=== PATIENT | female | born 1960 | race Caucasian/White ===

== ENCOUNTER → 2018-06-05 11:25 | Outpatient (CLI) | payer BC, SELFPAY ==
[2018-06-05 15:59] LABS: Absolute Lymphocyte Count 1.61 X10^3/ul (0.83-4.51); Absolute Neutrophil Count 3.5 X10^3/uL (2.0-7.7); Basophil# 0.03 X10^3/uL; Basophil% 0.5 % (0-1); Eosinophil# 0.14 X10^3/uL; Eosinophils% 2.3 % (0-5); Hematocrit 36.3 % (37-47); Hemoglobin 11.4 g/dl (12.0-15.0); Lymphocyte # 1.61 X10^3/ul (4.0); Lymphocyte % 26.9 % (19-41); Mean Corp Hgb Conc 31.4 g/gl (32-36); Mean Corpuscular Hgb 26.9 pg (27.0-32.0); Mean Corpuscular Volume 85.6 fL (81-99); Mean Platelet Vol. 10.6 fl (6.2-12.0); Monocyte# 0.69 X10^3/uL; Monocyte% 11.5 % (0-10); Neutrophil # 3.52 X10^3/uL (2.7-7.7); Neutrophil % 58.8 % (47-70); Platelet Count 328 K/mm3 (150-450); RBC Distribution Width CV 14.4 % (11.6-14.6); Red Blood Count 4.24 M/mm3 (4.2-5.4)
[2018-06-05 16:02] LABS: POSITIVE COUNT NO; POSITIVE DIFFERENTIAL NO; POSITIVE MORPHOLOGY NO
[2018-06-05 16:19] LABS: Vitamin B12 700 pg/mL (211-911); Vitamin D,25 Hydroxy 19.9 ng/mL (29.95-100.01)
[2018-06-05 16:55] LABS: AST(SGOT) 20 U/L (15-37); Alanine Aminotransfer ALT/SGPT 25 U/L (13-56); Albumin, Serum 3.8 g/dL (3.2-5.0); Alkaline Phosphatase 74 U/L (45-117); Anion Gap 8 (5-15); BUN 10 mg/dL (7-18); BUN/Creat Ratio 12.8 RATIO (10-20); Calcium,Total 8.8 mg/dL (8.5-10.1); Chloride 108 mmol/L (98-107); Creatinine, Serum 0.78 mg/dL (0.55-1.02); EST Glomerular Filtration Rate 80 mL/min (>60); Est Glom Filt Rate - Afr Amer 97 mL/min (>60); Ferritin 6 ng/mL (8-252); Globulin 3.7 g/dL (2.2-4.2); Glucose 82 mg/dL (74-106); Potassium 4.1 mmol/L (3.5-5.1); Protein, Total 7.5 g/dL (6.4-8.2); Sodium Level 144 mmol/L (136-145); Thyroid Stim Hormone (TSH) 1.34 uIU/mL (0.358-3.74)
[2018-06-08 16:09] LABS: Endomysial Antibody IgA Negative (Negative)
[2018-06-09 15:25] LABS: Deamidated Gliadin IgA 41 units (0-19); Deamidated Gliadin IgG 6 units (0-19); Immunoglobulin A 149 mg/dL (87-352); t-Transglutaminase IgA <2 U/mL (0-3)
== END ==
PROVIDERS: Family Provider Family Medicine; PCP Family Medicine; Visit Provider Family Medicine
DX: R63.5 Abnormal weight gain (principal); M17.11 Unilateral primary osteoarthritis, right knee; R53.83 Other fatigue; Z86.2 Personal history of diseases of the blood and blood-forming organs and certain disorders involving the immune mechanism; Z83.79 Family history of other diseases of the digestive system
CPT/HCPCS: 36415; 80053; 82306; 82607; 82728; 82746; 82784; 83516; 84443; 85025; 86255

== ENCOUNTER → 2018-09-10 15:48 | Outpatient (CLI) | payer BC, SELFPAY ==
[2018-09-10 17:27] LABS: Absolute Lymphocyte Count 2.21 X10^3/ul (0.83-4.51); Basophil# 0.03 X10^3/uL; Basophil% 0.4 % (0-1); Eosinophil# 0.13 X10^3/uL; Eosinophils% 1.6 % (0-5); Hematocrit 44.6 % (37-47); Hemoglobin 14.6 g/dl (12.0-15.0); Lymphocyte # 2.21 X10^3/ul (4.0); Lymphocyte % 27.9 % (19-41); Mean Corp Hgb Conc 32.7 g/gl (32-36); Mean Corpuscular Hgb 29.5 pg (27.0-32.0); Mean Corpuscular Volume 90.1 fL (81-99); Mean Platelet Vol. 10.1 fl (6.2-12.0); Monocyte# 0.57 X10^3/uL; Monocyte% 7.2 % (0-10); Neutrophil # 4.96 X10^3/uL (2.7-7.7); Neutrophil % 62.8 % (47-70); Platelet Count 287 K/mm3 (150-450); RBC Distribution Width CV 14.8 % (11.6-14.6); RBC Distribution Width SD 48.3 fl (35.1-43.9); Red Blood Count 4.95 M/mm3 (4.2-5.4); White Blood Count 7.9 K/mm3 (4.4-11.0)
[2018-09-10 17:28] LABS: POSITIVE COUNT NO; POSITIVE DIFFERENTIAL NO; POSITIVE MORPHOLOGY NO
[2018-09-10 17:43] LABS: Vitamin D,25 Hydroxy 31.3 ng/mL (29.95-100.01)
[2018-09-10 17:49] LABS: Ferritin 92 ng/mL (8-252)
== END ==
PROVIDERS: Family Provider Family Medicine; PCP Family Medicine; Visit Provider Family Medicine
DX: K90.0 Celiac disease (principal); E61.1 Iron deficiency; E55.9 Vitamin D deficiency, unspecified
CPT/HCPCS: 36415; 82306; 82728; 85025

== ENCOUNTER → 2019-03-18 | Outpatient (CLI) | payer BC, SELFPAY ==
[2019-03-18 10:24] LABS: ALB/GLOB Ratio 1.1 RATIO (0.9-2.4); AST(SGOT) 19 U/L (15-37); Alanine Aminotransfer ALT/SGPT 24 U/L (13-56); Albumin, Serum 3.9 g/dL (3.2-5.0); Alkaline Phosphatase 85 U/L (45-117); Anion Gap 4 (5-15); BUN 7 mg/dL (7-18); BUN/Creat Ratio 9.4 RATIO (10-20); Calcium,Total 8.9 mg/dL (8.5-10.1); Chloride 108 mmol/L (98-107); Creatinine, Serum 0.74 mg/dL (0.55-1.02); EST Glomerular Filtration Rate 85 mL/min (>60); Est Glom Filt Rate - Afr Amer 103 mL/min (>60); Ferritin 27 ng/mL (8-252); Globulin 3.5 g/dL (2.2-4.2); Glucose 88 mg/dL (74-106); Potassium 4.1 mmol/L (3.5-5.1); Protein, Total 7.4 g/dL (6.4-8.2); Sodium Level 141 mmol/L (136-145)
[2019-03-18 10:46] LABS: Vitamin D,25 Hydroxy 24.5 ng/mL (29.95-100.01)
== END | disposition home or self-care (01) ==
PROVIDERS: Family Provider Family Medicine; PCP Family Medicine; Referring Provider Family Medicine; Visit Provider Family Medicine
DX: E55.9 Vitamin D deficiency, unspecified (principal); M13.0 Polyarthritis, unspecified; K90.0 Celiac disease
CPT/HCPCS: 36415; 80053; 82306; 82728; 83735

== ENCOUNTER → 2019-09-17 | Outpatient (CLI) | payer BC, SELFPAY ==
[2019-09-17 10:08] LABS: Absolute Lymphocyte Count 1.31 X10^3/uL (0.83-4.51); Absolute Neutrophil Count 4.1 X10^3/uL (2.0-7.7); Basophil# 0.03 X10^3/uL; Basophil% 0.5 % (0-1); Eosinophil# 0.07 X10^3/uL; Eosinophils% 1.1 % (0-5); Hematocrit 41.2 % (37-47); Lymphocyte # 1.31 X10^3/ul (4.0); Lymphocyte % 21.1 % (19-41); Mean Corp Hgb Conc 31.6 g/dL (32-36); Mean Corpuscular Hgb 28.3 pg (27.0-32.0); Mean Corpuscular Volume 89.8 fL (81-99); Mean Platelet Vol. 9.9 fl (6.2-12.0); Monocyte# 0.72 X10^3/uL; Monocyte% 11.6 % (0-10); NRBC Flagged by Analyzer 0 % (0-5); Neutrophil # 4.07 X10^3/uL (2.7-7.7); Neutrophil % 65.5 % (47-70); Platelet Count 302 K/mm3 (150-450); RBC Distribution Width CV 12.8 % (11.6-14.6); RBC Distribution Width SD 41.8 fl (35.1-43.9); RET-HE 33.1 pg (30-35); Red Blood Count 4.59 M/mm3 (4.2-5.4); Reticulocyte Count 1.01 % (0.5-1.5); White Blood Count 6.2 K/mm3 (4.4-11.0)
[2019-09-17 10:33] LABS: Vitamin B12 808 pg/mL (211-911)
[2019-09-17 10:50] LABS: AST(SGOT) 16 U/L (15-37); Alanine Aminotransfer ALT/SGPT 20 U/L (13-56); Albumin, Serum 3.9 g/dL (3.2-5.0); Alkaline Phosphatase 73 U/L (45-117); Anion Gap 6 (5-15); BUN 9 mg/dL (7-18); BUN/Creat Ratio 10.9 RATIO (10-20); Calcium,Total 9.1 mg/dL (8.5-10.1); Chloride 107 mmol/L (98-107); Creatinine, Serum 0.83 mg/dL (0.55-1.02); EST Glomerular Filtration Rate 75 mL/min (>60); Est Glom Filt Rate - Afr Amer 91 mL/min (>60); Ferritin 8 ng/mL (8-252); Globulin 3.8 g/dL (2.2-4.2); Glucose 88 mg/dL (74-106); Potassium 4.2 mmol/L (3.5-5.1); Protein, Total 7.7 g/dL (6.4-8.2); Sodium Level 140 mmol/L (136-145); Thyroid Stim Hormone (TSH) 1.23 uIU/mL (0.358-3.74)
== END | disposition home or self-care (01) ==
LOC: MFPLAB 09:11
PROVIDERS: Family Provider Family Medicine; PCP Family Medicine; Referring Provider Family Medicine; Visit Provider Family Medicine
DX: K90.0 Celiac disease (principal); E61.1 Iron deficiency
CPT/HCPCS: 36415; 80053; 82607; 82728; 84443; 85025; 85045

== ENCOUNTER 2021-12-11 09:34 | Outpatient (CLI) | payer BC, SELFPAY ==
[2021-12-11 12:12] LABS: Absolute Lymphocyte Count 1.28 X10^3/uL (0.83-4.51); Absolute Neutrophil Count 4.2 X10^3/uL (2.0-7.7); Basophil# 0.04 X10^3/uL; Basophil% 0.6 % (0-1); Eosinophil# 0.09 X10^3/uL; Eosinophils% 1.4 % (0-5); Hematocrit 40.9 % (37-47); Hemoglobin 13.5 g/dL (12.0-15.0); Lymphocyte # 1.28 X10^3/ul (0.83-4.51); Lymphocyte % 19.9 % (19-41); Mean Corpuscular Hgb 30.8 pg (27.0-32.0); Mean Corpuscular Volume 93.2 fL (81-99); Mean Platelet Vol. 10.1 fl (6.2-12.0); Monocyte# 0.81 X10^3/uL; Monocyte% 12.6 % (0-10); NRBC Flagged by Analyzer 0 % (0-5); Neutrophil % 65.2 % (47-70); Platelet Count 348 K/mm3 (150-450); RBC Distribution Width CV 12.5 % (11.6-14.6); RBC Distribution Width SD 43.4 fl (35.1-43.9); Red Blood Count 4.39 M/mm3 (4.2-5.4); White Blood Count 6.4 K/mm3 (4.4-11.0)
[2021-12-11 12:43] LABS: Vitamin B12 737 pg/mL (211-911)
[2021-12-11 13:35] LABS: ALB/GLOB Ratio 0.9 RATIO (0.9-2.4); AST(SGOT) 17 U/L (15-37); Alanine Aminotransfer ALT/SGPT 21 U/L (13-56); Albumin, Serum 3.7 g/dL (3.2-5.0); Alkaline Phosphatase 76 U/L (45-117); Anion Gap 7 (5-15); BUN 6 mg/dL (7-18); BUN/Creat Ratio 8.3 RATIO (10-20); Chloride 106 mmol/L (98-107); Creatinine, Serum 0.73 mg/dL (0.55-1.02); EST Glomerular Filtration Rate 87 mL/min (>60); Est Glom Filt Rate - Afr Amer 105 mL/min (>60); Ferritin 28 ng/mL (8-252); Globulin 4.1 g/dL (2.2-4.2); Glucose 82 mg/dL (74-106); Iron 58 ug/dL (50-170); Iron Binding Capacity,Total 320 ug/dL (250-450); Potassium 4.2 mmol/L (3.5-5.1); Protein, Total 7.8 g/dL (6.4-8.2); Sodium Level 140 mmol/L (136-145); Thyroid Stim Hormone (TSH) 1.38 uIU/mL (0.358-3.74)
== END 2021-12-11 23:59 | disposition home or self-care (01) ==
LOC: MFPLAB 09:37
PROVIDERS: PCP Family Medicine; Referring Provider Family Medicine; Visit Provider Family Medicine
DX: K90.0 Celiac disease (principal); E61.1 Iron deficiency
CPT/HCPCS: 36415; 80053; 82607; 82728; 83540; 83550; 84443; 85025

== ENCOUNTER 2022-01-08 08:56 | Outpatient (CLI) | payer BC, SELFPAY ==
--- NOTE | 2022-01-08 08:59 | BI_ITS ---
MAMMOGRAPHY - BILATERAL SCREENING REASON FOR EXAM: Female, 61 years old. Routine annual screening examination. PERTINENT HISTORY: Non-contributory. TECHNIQUE: Digital bilateral breast tevin (3D mammographic acquisition) in the CC and MLO projections. 2-D mediolateral oblique (MLO) and craniocaudad (CC) views of both breasts were obtained. CAD: Full Field Digital Mammography with Computer Added Detection was performed. COMPARISON: No comparison mammograms available at this time. If any prior films become available, an addendum to this report can be generated. FINDINGS: Breast Composition: The breasts are heterogeneously dense, which may obscure small masses. There are no dominant masses or suspicious calcifications. No other significant abnormalities are identified. BI/SCRN MAMM (CAD)W/TEVIN BILAT IMPRESSION: Negative screening mammogram. Yearly followup mammogram recommended. (A) ASSESSMENT CATEGORY: BIRADS Category 1: Negative. A letter regarding these results will be sent to the patient by the facility within 30 days. Approximately 10% of breast cancers are not detected by mammography. A normal mammogram should not delay biopsy of a clinically suspicious abnormality. [id number] Electronically Signed: Ian Lang MD at 9:44 EST ,
== END 2022-01-08 23:59 | disposition home or self-care (01) ==
LOC: OPBI 08:57
PROVIDERS: PCP Family Medicine; Visit Provider Family Medicine
DX: Z12.31 Encounter for screening mammogram for malignant neoplasm of breast (principal)
CPT/HCPCS: 77063; 77067

== ENCOUNTER → 2022-04-11 | Outpatient (CLI) | payer BC, SELFPAY ==
[2022-04-11 10:34] LABS: Lyme Ab Screen Interpretation REF LAB
[2022-04-11 12:32] LABS: Absolute Lymphocyte Count 1.22 X10^3/uL (0.83-4.51); Absolute Neutrophil Count 5.8 X10^3/uL (2.0-7.7); Basophil# 0.04 X10^3/uL; Basophil% 0.5 % (0-1); Eosinophil# 0.09 X10^3/uL; Eosinophils% 1.1 % (0-5); Hematocrit 43.9 % (37-47); Hemoglobin 14.2 g/dL (12.0-15.0); Lymphocyte # 1.22 X10^3/ul (0.83-4.51); Lymphocyte % 15.3 % (19-41); Mean Corp Hgb Conc 32.3 g/dL (32-36); Mean Corpuscular Hgb 30.7 pg (27.0-32.0); Mean Platelet Vol. 10.3 fl (6.2-12.0); Monocyte# 0.77 X10^3/uL; Monocyte% 9.7 % (0-10); NRBC Flagged by Analyzer 0 % (0-5); Neutrophil # 5.83 X10^3/uL (2.7-7.7); Neutrophil % 73.1 % (47-70); Platelet Count 329 K/mm3 (150-450); RBC Distribution Width CV 12.8 % (11.6-14.6); RBC Distribution Width SD 44.2 fl (35.1-43.9); Red Blood Count 4.62 M/mm3 (4.2-5.4)
[2022-04-11 12:45] LABS: Microalbumin,Random Urine 5.1 mg/L (NO RANGE EST.)
[2022-04-11 13:02] LABS: AST(SGOT) 15 U/L (15-37); Alanine Aminotransfer ALT/SGPT 22 U/L (13-56); Albumin, Serum 3.8 g/dL (3.2-5.0); Alkaline Phosphatase 74 U/L (45-117); Anion Gap 5 (5-15); BUN 9 mg/dL (7-18); BUN/Creat Ratio 12.8 RATIO (10-20); Calcium,Total 9.3 mg/dL (8.5-10.1); Chloride 106 mmol/L (98-107); EST Glomerular Filtration Rate 90 mL/min (>60); Est Glom Filt Rate - Afr Amer 109 mL/min (>60); Globulin 3.8 g/dL (2.2-4.2); Glucose 97 mg/dL (74-106); Protein, Total 7.6 g/dL (6.4-8.2); Sodium Level 138 mmol/L (136-145); Thyroid Stim Hormone (TSH) 1.62 uIU/mL (0.358-3.74)
[2022-04-15 20:10] LABS: Lyme Scn Total Ab w/Rflx Negative (Negative)
== END | disposition home or self-care (01) ==
LOC: MFPLAB 10:28
PROVIDERS: PCP Family Medicine; Referring Provider Family Medicine; Visit Provider Family Medicine
DX: I10 Essential (primary) hypertension (principal); R42 Dizziness and giddiness; R53.81 Other malaise
CPT/HCPCS: 36415; 80053; 82043; 82570; 84443; 85025; 86618

== ENCOUNTER → 2022-05-20 | Outpatient (CLI) | payer BC, SELFPAY ==
[2022-05-20 15:55] LABS: Ferritin 38 ng/mL (8-252)
[2022-05-20 22:50] LABS: Vitamin D,25 Hydroxy 35.2 ng/mL
[2022-05-23 15:41] LABS: Zinc, Plasma or Serum 63 ug/dL (44-115)
== END | disposition home or self-care (01) ==
LOC: MFPLAB 11:27
PROVIDERS: PCP Family Medicine; Visit Provider Family Medicine
DX: R53.83 Other fatigue (principal); E55.9 Vitamin D deficiency, unspecified; E61.1 Iron deficiency; Z79.899 Other long term (current) drug therapy
CPT/HCPCS: 36415; 82306; 82728; 84630

== ENCOUNTER → 2022-10-23 | Outpatient (CLI) | payer BC, SELFPAY ==
[2022-10-23 10:10] LABS: Absolute Lymphocyte Count 1.48 X10^3/uL (0.83-4.51); Absolute Neutrophil Count 5.1 X10^3/uL (2.0-7.7); Basophil# 0.02 X10^3/uL; Basophil% 0.3 % (0-1); Eosinophil# 0.08 X10^3/uL; Eosinophils% 1.1 % (0-5); Hematocrit 46.7 % (37-47); Hemoglobin 15.6 g/dL (12.0-15.0); Lymphocyte # 1.48 X10^3/ul (0.83-4.51); Lymphocyte % 19.7 % (19-41); Mean Corp Hgb Conc 33.4 g/dL (32-36); Mean Corpuscular Hgb 31.4 pg (27.0-32.0); Mean Platelet Vol. 10.2 fl (6.2-12.0); Monocyte% 10.7 % (0-10); NRBC Flagged by Analyzer 0 % (0-5); Neutrophil # 5.11 X10^3/uL (2.7-7.7); Neutrophil % 68.1 % (47-70); Platelet Count 312 K/mm3 (150-450); RBC Distribution Width CV 12.2 % (11.6-14.6); RBC Distribution Width SD 42.3 fl (35.1-43.9); Red Blood Count 4.97 M/mm3 (4.2-5.4); White Blood Count 7.5 K/mm3 (4.4-11.0)
[2022-10-23 10:57] LABS: ALB/GLOB Ratio 0.9 RATIO (0.9-2.4); AST(SGOT) 17 U/L (15-37); Alanine Aminotransfer ALT/SGPT 22 U/L (13-56); Albumin, Serum 3.6 g/dL (3.2-5.0); Alkaline Phosphatase 81 U/L (45-117); Anion Gap 4 (5-15); BUN 8 mg/dL (7-18); BUN/Creat Ratio 11.9 RATIO (10-20); Calcium,Total 9.1 mg/dL (8.5-10.1); Chloride 104 mmol/L (98-107); Cholesterol 211 mg/dL (200); Creatinine, Serum 0.68 mg/dL (0.55-1.02); EST Glomerular Filtration Rate 94 mL/min (>60); Est Glom Filt Rate - Afr Amer 114 mL/min (>60); Globulin 3.8 g/dL (2.2-4.2); Glucose 79 mg/dL (74-106); High Density Lipoprotein 72 mg/dL; Potassium 4.2 mmol/L (3.5-5.1); Protein, Total 7.4 g/dL (6.4-8.2); Sodium Level 139 mmol/L (136-145); Thyroid Stim Hormone (TSH) 1.67 uIU/mL (0.358-3.74); Triglycerides 76 mg/dL; Very Low Density Lipoprotein 15 mg/dL (5-40)
== END | disposition home or self-care (01) ==
LOC: MFPLAB 08:15
PROVIDERS: PCP Family Medicine; Referring Provider Family Medicine; Visit Provider Family Medicine
DX: Z00.00 Encounter for general adult medical examination without abnormal findings (principal)
CPT/HCPCS: 36415; 80053; 80061; 84443; 85025

== ENCOUNTER → 2022-10-30 | Outpatient (CLI) | payer BC, SELFPAY ==
[2022-10-30 10:50] LABS: Microalbumin,Random Urine < 5.0 mg/L (NO RANGE EST.)
== END | disposition home or self-care (01) ==
LOC: LABSPEC 09:16
PROVIDERS: PCP Family Medicine; Referring Provider Family Medicine; Visit Provider Family Medicine
DX: Z00.00 Encounter for general adult medical examination without abnormal findings (principal)
CPT/HCPCS: 82043; 82570

== ENCOUNTER 2023-03-20 07:50 | Day surgery (SDC) | payer BC, SELFPAY ==
[2023-03-20] VITALS (7 sets, daily range): BP systolic 81–135; BP diastolic 40–85; PULSE 62–80; RESP 16; TEMP 36.7–36.8; O2SAT 98–100; BMI 26.2
[2023-03-20] MEDS: Lactated Ringers 1,000 ML 15 ML IV (08:23)
--- NOTE | 2023-03-20 08:58 | PCM.HP.STD ---
[facility] - General General Date of Admission: 03/20/23 Date of Service: 03/20/23 Chief Complaint: Screening colonoscopy [facility] Narrative EFRA FLETCHER, is a 62 F who presents today for screening colonoscopy. She has not had a colonoscopy in the past. She denies any abdominal pain. She denies any nausea, vomiting or diarrhea. She did [place] any chest pain or shortness of breath. She does have a history of iron deficiency anemia and is on iron. She also carries a past medical history of mild hypertension which is controlled. [facility] Medical History (Updated 03/18/23 @ 12:10 by Michelle Redman) Celiac disease History of stress test HTN (hypertension) Iron deficiency anemia Low iron Non-smoker Vitamin D deficiency Wears glasses Home Medications cholecalciferol (vitamin D3) 25 mcg (1,000 unit) capsule 75 mcg PO DAILY 01/07/23 [History Last Taken Unknown] ferrous sulfate 325 mg (65 mg iron) tablet (Feosol) 325 mg PO DAILY 01/07/23 [History Last Taken Unknown] flaxseed oil 1,000 mg capsule 1,000 mg PO DAILY 01/07/23 [History Last Taken Unknown] multivitamin 1 tab PO DAILY 01/07/23 [History Last Taken Unknown] ramipril 5 mg capsule 5 mg PO DAILY 01/07/23 [History Last Taken Unknown] Allergy/AdvReac Type Severity Reaction Status Date / Time No Known Allergies Allergy Verified 03/20/23 08:16 Surgical History (Updated 03/18/23 @ 12:10 by Michelle Redman) History of tubal ligation History of wisdom tooth extraction Social History (Updated 01/07/23 @ 14:06 by Dorota Yeung) Smoking Status: Never smoker ROS Review of Systems ROS Unobtainable: other Constitutional Constitutional: Denies fatigue, fever(s), poor appetite, weight gain or weight loss ENT HEENT: Denies mouth lesions Cardiovascular Cardiovascular: Denies abdominal bloating, abdominal edema or abdominal pain Respiratory/Chest Respiratory/Chest: Denies change in mental status, change in phlegm color, chest congestion or chest tightness Gastrointestinal Gastrointestinal: Denies belching, bloating, change in bowel habits, change in stool character, chewing difficulty, coffee ground emesis, constipation, cramping, diarrhea, dyspepsia, dysphagia, early satiety, excessive flatus, fecal incontinence, heartburn, hematemesis, hematochezia, hemorrhoids, loose stools, melena, nausea, odynophagia, rectal bleeding, tenesmus, vomiting or weight changes Genitourinary Genitourinary: Denies abdominal discomfort, burning urination or itching Musculoskeletal Musculoskeletal: Reports as per HPI; Denies muscle weakness or myalgias Integumentary Integumentary: Denies jaundice Neurologic Neurologic: Denies lack of coordination or weakness Psychiatric Psychiatric: Denies confusion, depression, memory loss, mood swings, paranoia or suicidal ideation Endocrine Endocrinology: Denies systems reviewed and no addt'l complaints, except as documented Hematologic/Lymphatic Hematologic/Lymphatic: Denies anemia, easy bleeding, easy bruising or lymphadenopathy Allergic/Immunologic Allergic/Immunologic: Denies systems reviewed and no addt'l complaints, except as documented Vital Signs Vital Signs Vital Signs: 03/20/23 08:17 03/20/23 08:17 Temperature 98.3 F Temperature Source Temporal Pulse Rate 80 Respiratory Rate 16 Respiratory Pattern Normal Blood Pressure 135/85 H Blood Pressure Mean 101 Blood Pressure Source Monitor Blood Pressure Position Semi-Fowlers Blood Pressure Location Left Arm Pulse Ox 100 Oxygen Delivery Method Room Air Weight Weight: 138 lb 14.259 oz Body Mass Index (BMI) 26.2 Assessment & Plan Assessment/Plan (1) Encounter for screening for malignant neoplasm of colon: PLAN: She was explained alternatives, risk, benefits including outstanding bleeding, infection, sepsis, perforation, need for emergent and . She will have an ASA of 1.
--- NOTE | 2023-03-20 09:24 | OP.COLON_ITS ---
Patient Name: Jaz Lao Procedure Date: 03/20/2023 9:01 AM Date of : 1960 Age: 62 Procedure: Colonoscopy Indications: Screening for colorectal malignant neoplasm Providers: Jasbir Otero DO Referring MD: Paolo Aquino Medicines: Monitored Anesthesia Care Patient Profile: This is a 62 year old female. Refer to note in patient chart for documentation of history and physical. Last Colonoscopy: none. The patient's first colonoscopy is today. Complications: No immediate complications. Procedure: Pre-Anesthesia Assessment: - Prior to the procedure, a History and Physical was performed, and patient medications and allergies were reviewed. The risks and benefits of the procedure and the sedation options and risks were discussed with the patient. All questions were answered and informed consent was obtained. Patient identification and proposed procedure were verified by the physician in the pre-procedure area. Mental Status Examination: alert and oriented. Airway Examination: normal oropharyngeal airway and neck mobility. Respiratory Examination: clear to auscultation. CV Examination: normal. Prophylactic Antibiotics: The patient does not require prophylactic antibiotics. Prior Anticoagulants: The patient has taken no previous anticoagulant or antiplatelet agents. ASA Grade Assessment: II - A patient with mild systemic disease. After reviewing the risks and benefits, the patient was deemed in satisfactory condition to undergo the procedure. The anesthesia plan was to use monitored anesthesia care (MAC). Immediately prior to administration of medications, the patient was re-assessed for adequacy to receive sedatives. The heart rate, respiratory rate, oxygen saturations, blood pressure, adequacy of pulmonary ventilation, and response to care were monitored throughout the procedure. The physical status of the patient was re-assessed after the procedure. After I obtained informed consent, the scope was passed under direct vision. Throughout the procedure, the patient's blood pressure, pulse, and oxygen saturations were monitored continuously. The Colonoscope was introduced through the anus and advanced to the cecum, identified by appendiceal orifice and ileocecal valve. The colonoscopy was performed without difficulty. The patient tolerated the procedure well. The quality of the bowel preparation was adequate. Scope In: 9:08:59 AM Scope Withdrawal Time 0 hours 4 minutes 29 seconds Scope Out: 9:17:44 AM Total Procedure Duration Time 0 hours 8 minutes 45 seconds Findings: The perianal and digital rectal examinations were normal. A few small and large-mouthed diverticula were found in the recto-sigmoid colon and sigmoid colon. Impression: - Severe diverticulosis in the recto-sigmoid colon and in the sigmoid colon. - No specimens collected. Recommendation: - Discharge patient to home. - Resume previous diet. - Continue present medications. - Await pathology results. - Repeat colonoscopy to review the polypectomy site. Procedure Code(s): --- Professional --- G0121, Colorectal cancer screening; colonoscopy on individual not meeting criteria for high risk CPT copyright 2017 [employer]. All rights reserved. The codes documented in this report are preliminary and upon garage door hanger review may be revised to meet current compliance requirements. Jasbir Otero DO 03/20/2023 9:24:14 AM This report has been signed electronically. Number of Addenda: 0 Note Initiated On: 03/20/2023 9:01 AM
--- NOTE | 2023-03-20 09:25 | OP.CCLET_ITS ---
03/20/2023 Paolo Aquino [address] [place] [address] Re : Colonoscopy procedure for Jaz Lao Dear Dr. Aquino This procedure was performed on March. My impressions and recommendations are as follows: Impressions : - Severe diverticulosis in the recto-sigmoid colon and in the sigmoid colon. - No specimens collected. Recommendations : - Discharge patient to home. - Resume previous diet. - Continue present medications. - Await pathology results. - Repeat colonoscopy to review the polypectomy site. My findings are described in the full procedure note, which is enclosed. If I can be of further assistance, please feel free to contact me at . Sincerely, Jasbir Otero, 03/20/2023 9:24:14 AM This report has been signed electronically.
== END 2023-03-20 10:10 | disposition home or self-care (01) ==
LOC: EN 07:56 → AC 08:00
PROVIDERS: PCP Family Medicine; Referring Provider Family Medicine; Visit Provider Internal Medicine Gastroenterology
PROC: 0DJD8ZZ Inspection of Lower Intestinal Tract, Via Natural or Artificial Opening Endoscopic (ICD-10-PCS; CPT 45378; principal; 2023-03-20 08:55)
DX: Z12.11 Encounter for screening for malignant neoplasm of colon (principal); K57.30 Diverticulosis of large intestine without perforation or abscess without bleeding; I10 Essential (primary) hypertension; D50.9 Iron deficiency anemia, unspecified; Z79.899 Other long term (current) drug therapy
CPT/HCPCS: 45378; J7120; J2405

== ENCOUNTER → 2023-04-14 | Outpatient (CLI) | payer BC, SELFPAY ==
[2023-04-14 13:27] LABS: Anion Gap 5 (5-15); BUN 7 mg/dL (7-18); BUN/Creat Ratio 9.9 RATIO (10-20); Calcium,Total 9.5 mg/dL (8.5-10.1); Chloride 107 mmol/L (98-107); Creatinine, Serum 0.71 mg/dL (0.55-1.02); EST Glomerular Filtration Rate 89 mL/min (>60); Est Glom Filt Rate - Afr Amer 107 mL/min (>60); Glucose 94 mg/dL (74-106); Potassium 4.1 mmol/L (3.5-5.1); Sodium Level 139 mmol/L (136-145)
== END | disposition home or self-care (01) ==
LOC: MFPLAB 09:58
PROVIDERS: PCP Family Medicine; Visit Provider Family Medicine
DX: I10 Essential (primary) hypertension (principal)
CPT/HCPCS: 36415; 80048

== ENCOUNTER → 2023-04-18 | Outpatient (CLI) | payer BC, SELFPAY ==
--- NOTE | 2023-04-18 08:21 | BI_ITS ---
MAMMOGRAPHY - BILATERAL SCREENING REASON FOR EXAM: Female, 62 years old. Routine annual screening examination. PERTINENT HISTORY: Non-contributory. TECHNIQUE: Digital bilateral breast tevin (3D mammographic acquisition) in the CC and MLO projections. 2-D mediolateral oblique (MLO) and craniocaudad (CC) views of both breasts were obtained. CAD: Full Field Digital Mammography with Computer Added Detection was performed. COMPARISON: Comparison is made with prior study dated January 08, 2022. FINDINGS: Breast Composition: The breasts are heterogeneously dense, which may obscure small masses. There are no dominant masses or suspicious calcifications. Stable small benign-appearing lateral axillary lymph nodes. No other significant abnormalities are identified. There has been no significant change since the prior study. BI/SCRN MAMM (CAD)W/TEVIN BILAT IMPRESSION: Stable bilateral screening mammogram. Yearly follow-up mammogram recommended. (A) ASSESSMENT CATEGORY: BIRADS Category 2: Benign. A letter regarding these results will be sent to the patient by the facility within 30 days. Approximately 10% of breast cancers are not detected by mammography. A normal mammogram should not delay biopsy of a clinically suspicious abnormality. [id number] Electronically Signed: Ian Lang MD at 9:52 EDT ,
== END | disposition home or self-care (01) ==
LOC: OPBI 08:21
PROVIDERS: PCP Family Medicine; Referring Provider Family Medicine; Visit Provider Family Medicine
DX: Z12.31 Encounter for screening mammogram for malignant neoplasm of breast (principal)
CPT/HCPCS: 77063; 77067

== ENCOUNTER → 2023-10-20 | Outpatient (CLI) | payer BC, SELFPAY ==
[2023-10-20 12:17] LABS: Hematocrit 45.2 % (37-47); Hemoglobin 14.7 g/dL (12.0-15.0)
[2023-10-20 13:08] LABS: Anion Gap 5 (5-15); BUN 8 mg/dL (7-18); BUN/Creat Ratio 11.4 RATIO (10-20); Calcium,Total 9.1 mg/dL (8.5-10.1); Chloride 107 mmol/L (98-107); EST Glomerular Filtration Rate 90 mL/min (>60); Est Glom Filt Rate - Afr Amer 108 mL/min (>60); Ferritin 37 ng/mL (8-252); Glucose 98 mg/dL (74-106); Sodium Level 140 mmol/L (136-145)
[2023-10-20 13:22] LABS: Microalbumin,Random Urine < 5.0 mg/L (NO RANGE EST.)
== END | disposition home or self-care (01) ==
LOC: MFPLAB 10:07
PROVIDERS: PCP Family Medicine; Visit Provider Family Medicine
DX: I10 Essential (primary) hypertension (principal); E61.1 Iron deficiency
CPT/HCPCS: 36415; 80048; 82043; 82570; 82728; 85014; 85018

== ENCOUNTER → 2024-04-20 | Outpatient (CLI) | payer BC, SELFPAY ==
[2024-04-20 10:04] LABS: Absolute Lymphocyte Count 1.01 X10^3/uL (0.83-4.51); Absolute Neutrophil Count 3.7 X10^3/uL (2.0-7.7); Basophil# 0.04 X10^3/uL; Basophil% 0.7 % (0-1); Eosinophil# 0.07 X10^3/uL; Eosinophils% 1.3 % (0-5); Hematocrit 42.5 % (37-47); Hemoglobin 14.1 g/dL (12.0-15.0); Lymphocyte # 1.01 X10^3/ul (0.83-4.51); Lymphocyte % 18.2 % (19-41); Mean Corp Hgb Conc 33.2 g/dL (32-36); Mean Corpuscular Hgb 30.9 pg (27.0-32.0); Mean Corpuscular Volume 93.2 fL (81-99); Mean Platelet Vol. 9.8 fl (6.2-12.0); Monocyte# 0.69 X10^3/uL; Monocyte% 12.4 % (0-10); NRBC Flagged by Analyzer 0 % (0-5); Neutrophil # 3.74 X10^3/uL (2.7-7.7); Neutrophil % 67.2 % (47-70); Platelet Count 273 K/mm3 (150-450); RBC Distribution Width CV 12.2 % (11.6-14.6); RBC Distribution Width SD 41.9 fl (35.1-43.9); Red Blood Count 4.56 M/mm3 (4.2-5.4); White Blood Count 5.6 K/mm3 (4.4-11.0)
[2024-04-20 10:39] LABS: ALB/GLOB Ratio 0.9 RATIO (0.9-2.4); AST(SGOT) 15 U/L (15-37); Alanine Aminotransfer ALT/SGPT 22 U/L (13-56); Albumin, Serum 3.6 g/dL (3.2-5.0); Alkaline Phosphatase 61 U/L (45-117); Anion Gap 5 (5-15); BUN 10 mg/dL (7-18); BUN/Creat Ratio 13.6 RATIO (10-20); Calcium,Total 9.5 mg/dL (8.5-10.1); Chloride 106 mmol/L (98-107); Creatinine, Serum 0.73 mg/dL (0.55-1.02); EST Glomerular Filtration Rate 85 mL/min (>60); Est Glom Filt Rate - Afr Amer 103 mL/min (>60); Glucose 104 mg/dL (74-106); Potassium 4.1 mmol/L (3.5-5.1); Protein, Total 7.6 g/dL (6.4-8.2); Sodium Level 139 mmol/L (136-145)
[2024-04-20 11:21] LABS: Microalbumin,Random Urine < 5.0 mg/L (NO RANGE EST.)
== END | disposition home or self-care (01) ==
LOC: MFPLAB 08:37
PROVIDERS: PCP Family Medicine; Visit Provider Family Medicine
DX: M24.9 Joint derangement, unspecified (principal); I10 Essential (primary) hypertension
CPT/HCPCS: 36415; 80053; 82043; 82570; 85025

== ENCOUNTER → 2024-04-23 | Outpatient (CLI) | payer BC, SELFPAY ==
--- NOTE | 2024-04-23 07:12 | BI_ITS ---
MAMMOGRAPHY - BILATERAL SCREENING REASON FOR EXAM: Female, 63 years old. Routine annual screening examination. PERTINENT HISTORY: Non-contributory. TECHNIQUE: Digital bilateral breast tevin (3D mammographic acquisition) in the CC and MLO projections. 2-D mediolateral oblique (MLO) and craniocaudad (CC) views of both breasts were obtained. CAD: Full Field Digital Mammography with Computer Added Detection was performed. COMPARISON: Comparison is made with prior study dated April 18, 2023 and January 08, 2022. FINDINGS: Breast Composition: The breasts are heterogeneously dense, which may obscure small masses. There are no dominant masses or suspicious calcifications. Stable small benign-appearing bilateral axillary lymph nodes. No other significant abnormalities are identified. There has been no significant change since the prior study. BI/SCRN MAMM (CAD)W/TEVIN BILAT IMPRESSION: Stable bilateral screening mammogram. Yearly follow-up mammogram recommended. (A) ASSESSMENT CATEGORY: BIRADS Category 2: Benign. A letter regarding these results will be sent to the patient by the facility within 30 days. Approximately 10% of breast cancers are not detected by mammography. A normal mammogram should not delay biopsy of a clinically suspicious abnormality. [id number] Electronically Signed: Ian Lang MD at 8:32 EDT ,
== END | disposition home or self-care (01) ==
LOC: OPBI 07:08
PROVIDERS: PCP Family Medicine; Referring Provider Family Medicine; Visit Provider Family Medicine
DX: Z12.31 Encounter for screening mammogram for malignant neoplasm of breast (principal)
CPT/HCPCS: 77063; 77067

== ENCOUNTER → 2024-10-25 | Outpatient (CLI) | payer BC, SELFPAY ==
[2024-10-25 10:14] LABS: Absolute Lymphocyte Count 1.27 X10^3/uL (0.83-4.51); Basophil# 0.03 X10^3/uL; Basophil% 0.5 % (0-1); Eosinophil# 0.11 X10^3/uL; Eosinophils% 1.8 % (0-5); Lymphocyte # 1.27 X10^3/ul (0.83-4.51); Lymphocyte % 20.4 % (19-41); Mean Corp Hgb Conc 32.6 g/dL (32-36); Mean Corpuscular Hgb 30.2 pg (27.0-32.0); Mean Corpuscular Volume 92.7 fL (81-99); Mean Platelet Vol. 10.5 fl (6.2-12.0); Monocyte# 0.82 X10^3/uL; Monocyte% 13.1 % (0-10); NRBC Flagged by Analyzer 0 % (0-5); Neutrophil # 3.99 X10^3/uL (2.7-7.7); Neutrophil % 63.9 % (47-70); Platelet Count 232 K/mm3 (150-450); RBC Distribution Width CV 12.2 % (11.6-14.6); Red Blood Count 4.96 M/mm3 (4.2-5.4); White Blood Count 6.2 K/mm3 (4.4-11.0)
[2024-10-25 10:34] LABS: Vitamin D,25 Hydroxy 40.1 ng/mL
[2024-10-25 10:41] LABS: ALB/GLOB Ratio 0.9 RATIO (0.9-2.4); AST(SGOT) 18 U/L (15-37); Alanine Aminotransfer ALT/SGPT 21 U/L (13-56); Albumin, Serum 3.6 g/dL (3.2-5.0); Alkaline Phosphatase 70 U/L (45-117); Anion Gap 3 (5-15); BUN 8 mg/dL (7-18); BUN/Creat Ratio 11.3 RATIO (10-20); Chloride 106 mmol/L (98-107); Creatinine, Serum 0.71 mg/dL (0.55-1.02); EST Glomerular Filtration Rate 88 mL/min (>60); Est Glom Filt Rate - Afr Amer 107 mL/min (>60); Ferritin 54 ng/mL (8-252); Glucose 85 mg/dL (74-106); Potassium 3.8 mmol/L (3.5-5.1); Protein, Total 7.6 g/dL (6.4-8.2); Sodium Level 139 mmol/L (136-145)
[2024-10-25 10:52] LABS: Microalbumin,Random Urine 7.4 mg/L (NO RANGE EST.); Microalbumin:Creatinine Ratio 8.1 mg/g CRE (<30 mg/g CRE)
== END | disposition home or self-care (01) ==
PROVIDERS: PCP Family Medicine; Referring Provider Family Medicine; Visit Provider Family Medicine
DX: M13.0 Polyarthritis, unspecified (principal); E55.9 Vitamin D deficiency, unspecified; I10 Essential (primary) hypertension; K90.0 Celiac disease
CPT/HCPCS: 36415; 80053; 82043; 82306; 82570; 82728; 84443; 85025

== ENCOUNTER → 2025-10-20 | Outpatient (CLI) | payer MEDICARE, OTHER, SELFPAY ==
--- OUTSIDE RECORDS SUMMARY | 2025-10-20 07:45 | XMS RPT_ITS | CCD ---
Author Organization [facility] Care Team Providers Care Talent Specialist Name Role Phone Dr. Paolo Aquino Primary Care Provider Dorota Yeung Attending Provider Unavailable Dr. Paolo Aquino Referring Provider [phone] Friend, Dr. Martell Attending Provider [phone] Friend, Dr. Martell Other Provider [phone] Paolo Aquino Referring Unavailable Paolo Aquino Attending Unavailable Paolo Aquino Primary Care Unavailable Paolo Aquino Primary Care Unavailable Jorge Gilmore Attending Unavailable Medications Current Medications Medication Drug Class(es) Dates Sig (Normalized) Sig (Original) cholecalciferol 0.025 mg oral capsule (2 sources) Vitamin D Start: 01-07-2023 take 75 ug by mouth once daily Cholecalciferol (Vitamin D3) Active 75 MCG PO DAILY January 07, 2023 12:00am ferrous sulfate 325 mg oral tablet (2 sources) Start: 01-07-2023 take 1 tablet by mouth once daily Ferrous Sulfate (Feosol) 325 mg (65 mg iron) tablet Active 325 MG PO DAILY January 07, 2023 12:00am linseed oil 1000 mg oral capsule (2 sources) Start: 01-07-2023 take 1000 mg by mouth once daily Flaxseed Oil Active 1000 MG PO DAILY January 07, 2023 12:00am administer with a meal Multivitamin preparation (2 sources) Start: 01-07-2023 take 1 tablet by mouth once daily Multivitamin Active 1 TABLET PO DAILY January 07, 2023 12:00am Start: 01-07-2023 take 1 tablet by rosendo th once daily Multivitamin Active 1 TABLET PO DAILY January 07, 2023 1:00am ramipril 5 mg oral capsule (2 sources) Angiotensin Converting Enzyme Inhibitor Start: 03-07-2023 take 5 mg by mouth once daily Ramipril Active 5 MG PO DAILY January 07, 2023 12:00am Problems Problem Classification Problem Date Documented Da te Episodic/Chronic Other non-traumatic joint disorders (1 source) Polyarthritis, unspecified; Translations: [Polyarthritis, unspecified] Onset: 11-25-2024 Chronic Other screening for suspected conditions (not mental disorders or infectious disease) (3 sources) Patient encounter status; Translations: [Encounter for screening for malignant neoplasm of colon] 01-07-2023 Episodic Results Test Name Value Interpretation Reference Range Facility CBC W/Diff, Automatedon 10-04 Absolute Lymph 1.27 X10 3/uL Normal 0.83-4.51 [facility] Comment on above: Order Comment: Order Date: 10/21/24 Order Info: 0184-1 - CBCD Performed By: #### L 506.1000, L502.0250, L500.4050, L100.0100, L501.9520, L503.6550 #### [facility] [address] [place], [address] Absolute Neut 4.0 X10 3/uL Normal 2.0-7.7 [facility] Comment on above: Order Comment: Order Date: 10/21/24 Order Info: 0184-1 - CBCD Performed By: #### L 506.1000, L502.0250, L500.4050, L100.0100, L501.9520, L503.6550 #### [facility] [address] [place], [address] Basophils/100 WBC (Bld) 0.5 % Normal 0-1 [facility] Comment on above: Order Comment: Order Date: 10/21/24 Order Info: 0184-1 - CBCD Performed By: #### L 506.1000, L502.0250, L500.4050, L100.0100, L501.9520, L503.6550 #### [facility] [address] [place], [address] Eosinophils/100 WBC (Bld) 1.8 % Normal 0-5 [facility] Comment on above: Order Comment: Order Date: 10/21/24 Order Info: 0184-1 - CBCD Performed By: #### L 506.1000, L502.0250, L500.4050, L100.0100, L501.9520, L503.6550 #### [facility] [address] [place], [address] Erythrocyte distribution width (RBC) [Ratio] 12.2 % Normal 11.6-14.6 [facility] Comment on above: Order Comment: Order Date: 10/21/24 Order Info: 0184-1 - CBCD Performed By: #### L 506.1000, L502.0250, L500.4050, L100.0100, L501.9520, L503.6550 #### [facility] [address] [place], [address] Hematocrit (Bld) [Volume fraction] 46.0 % Normal 37-47 [facility] Comment on above: Order Comment: Order Date: 10/21/24 Order Info: 0184-1 - CBCD Performed By: #### L 506.1000, L502.0250, L500.4050, L100.0100, L501.9520, L503.6550 #### [facility] [address] [place], [address] Hemoglobin (Bld) [Mass/Vol] 15.0 g/dL Normal 12.0-15.0 [facility] Comment on above: Order Comment: Order Date: 10/21/24 Order Info: 0184-1 - CBCD Performed By: #### L 506.1000, L502.0250, L500.4050, L100.0100, L501.9520, L503.6550 #### [facility] [address] [place], [address] IG% 0.300 Normal 0.0-0.9 [facility] Comment on above: Order Comment: Order Date: 10/21/24 Order Info: 0184-1 - CBCD Result Comment: IG% - Immature Granulocytes (promyelocytes, myelocytes and metamyelocytes) > 1% indicates that a LEFT SHIFT is Present. Performed By: #### L 506.1000, L502.0250, L500.4050, L100.0100, L501.9520, L503.6550 #### [facility] [address] [place], [address] Lymphocytes/100 WBC (Bld) 20.4 % Normal 19-41 [facility] Comment on above: Order Comment: Order Date: 10/21/24 Order Info: 0184-1 - CBCD Performed By: #### L 506.1000, L502.0250, L500.4050, L100.0100, L501.9520, L503.6550 #### [facility] [address] [place], [address] MCH (RBC) [Entitic mass] 30.2 pg Normal 27.0-32.0 [facility] Comment on above: Order Comment: Order Date: 10/21/24 Order Info: 0184-1 - CBCD Performed By: #### L 506.1000, L502.0250, L500.4050, L100.0100, L501.9520, L503.6550 #### [facility] [address] [place], [address] MCHC (RBC) [Mass/Vol] 32.6 g/dL Normal 32-36 [facility] Comment on above: Order Comment: Order Date: 10/21/24 Order Info: 0184-1 - CBCD Performed By: #### L 506.1000, L502.0250, L500.4050, L100.0100, L501.9520, L503.6550 #### [facility] [address] [place], [address] MCV (RBC) [Entitic vol] 92.7 fL Normal 81-99 [facility] Comment on above: Order Comment: Order Date: 10/21/24 Order Info: 0184-1 - CBCD Performed By: #### L 506.1000, L502.0250, L500.4050, L100.0100, L501.9520, L503.6550 #### [facility] [address] [place], [address] Monocytes/100 WBC (Bld) 13.1 % High 0-10 [facility] Comment on above: Order Comment: Order Date: 10/21/24 Order Info: 0184- - CBCD Performed By: #### L 506.1000, L502.0250, L500.4050, L100.0100, L501.9520, L503.6550 #### [facility] [address] [place], [address] Neutrophils/100 WBC (Bld) 63.9 % Normal 47-70 [facility] Comment on above: Order Comment: Order Date: 10/21/24 Order Info: 0184-1 - CBCD Performed By: #### L 506.1000, L502.0250, L500.4050, L100.0100, L501.9520, L503.6550 #### [facility] [address] [place], [address] Nucleated RBC (Bld) [#/Vol] 0 10*3/uL Normal 0-5 [facility] Comment on above: Order Comment: Order Date: 10/21/24 Order Info: 0184-1 - CBCD Performed By: #### L 506.1000, L502.0250, L500.4050, L100.0100, L501.9520, L503.6550 #### [facility] [address] [place], [address] Platelet mean volume (Bld) [Entitic vol] 10.5 fL Normal 6.2-12.0 [facility] Comment on above: Order Comment: Order Date: 10/21/24 Order Info: 0184- - CBCD Performed By: #### L 506.1000, L502.0250, L500.4050, L100.0100, L501.9520, L503.6550 #### [facility] [address] [place], [address] Platelets (Bld) [#/Vol] 232 10*3/uL Normal 150-450 [facility] Comment on above: Order Comment: Order Date: 10/21/24 Order Info: 018- - CBCD Performed By: #### L 506.1000, L502.0250, L500.4050, L100.0100, L501.9520, L503.6550 #### [facility] [address] [place], [address] RBC (Bld) [#/Vol] 4.96 10*6/uL Normal 4.2-5.4 [facility] Comment on above: Order Comment: Order Date: 10/21/24 Order Info: 0184 - CBCD Performed By: #### L 506.1000, L502.0250, L500.4050, L100.0100, L501.9520, L503.6550 #### [facility] [address] [place], [address] RDW SD 42.0 fl Normal 35.1-43.9 [facility] Comment on above: Order Comment: Order Date: 10/21/24 Order Info: 0184- - CBCD Performed By: #### L 506.1000, L502.0250, L500.4050, L100.0100, L501.9520, L503.6550 #### [facility] [address] [place], [address] WBC (Bld) [#/Vol] 6.2 10*3/uL Normal 4.4-11.0 [facility] Comment on above: Order Comment: Order Date: 10/21/24 Order Info: 0184- - CBCD Performed By: #### L 506.1000, L502.0250, L500.4050, L100.0100, L501.9520, L503.6550 #### [facility] [address] [place], [address] Comprehensive Metabolic Prof ilon 10-25-2024 Albumin [Mass/Vol] 3.6 g/dL Normal 3.2-5.0 [facility] Comment on above: Order Comment: Order Date: 10/21/24 Order Info: 0786-1 - CMP Order Info: 3016-01 - TSH Order Info: 2276-02 - FLYNN Performed By: #### L 506.1000, L502.0250, L500.4050, L100.0100, L501.9520, L503.6550 #### [facility] [address] [place], [address] Albumin/Globulin [Mass ratio] 0.9 {ratio} Normal 0.9-2.4 [facility] Comment on above: Order Comment: Order Date: 10/21/24 Order Info: 0786 - CMP Order Info: 3016-01 - TSH Order Info: 2276-02 - FLYNN Performed By: #### L 506.1000, L502.0250, L500.4050, L100.0100, L501.9520, L503.6550 #### [facility] [address] [place], [address] ALK P 70 U/L Normal 45-117 [facility] Comment on above: Order Comment: Order Date: 10/21/24 Order Info: 0786-1 - CMP Order Info: 3 - TSH Order Info: 2276-02 - FLYNN Performed By: #### L 506.1000, L502.0250, L500.4050, L100.0100, L501.9520, L503.6550 #### [facility] [address] [place], [address] ALT [Catalytic activity/Vol] 21 U/L Normal 13-56 [facility] Comment on above: Order Comment: Order Date: 10/21/24 Order Info: 785-11 - CMP Order Info: 3016-01 - TSH Order Info: 2276-02 - FLYNN Performed By: #### L 506.1000, L502.0250, L500.4050, L100.0100, L501.9520, L503.6550 #### [facility] [address] [place], [address] AST [Catalytic activity/Vol] 18 U/L Normal 15-37 [facility] Comment on above: Order Comment: Order Date: 10/21/24 Order Info: 785-11 - CMP Order Info: 3016-01 - TSH Order Info: 2276-02 - FLYNN Performed By: #### L 506.1000, L502.0250, L500.4050, L100.0100, L501.9520, L503.6550 #### [facility] [address] [place], [address] Bilirubin [Mass/Vol] 1.10 mg/dL High 0.20-1.00 [facility] Comment on above: Order Comment: Order Date: 10/21/24 Order Info: 785-11 - CMP Order Info: 3016-01 - TSH Order Info: 2276-02 - FLYNN Result Comment: For patients on eltrombopag therapy, use of Dimension [place] TBIL is not recommended. Performed By: #### L 506.1000, L502.0250, L500.4050, L100.0100, L501.9520, L503.6550 #### [facility] [address] [place], [address] BUN/CRE 11.3 RATIO Normal 10-20 [facility] Comment on above: Order Comment: Order Date: 10/21/24 Order Info: 071 - CMP Order Info: 3016-01 - TSH Order Info: 2276-02 - FLYNN Performed By: #### L 506.1000, L502.0250, L500.4050, L100.0100, L501.9520, L503.6550 #### [facility] [address] [place], [address] CA,Total 9.0 mg/dL Normal 8.5-10.1 [facility] Comment on above: Order Comment: Order Date: 10/21/24 Order Info: 07-1 - CMP Order Info: 3016-01 - TSH Order Info: 4 - FLYNN Performed By: #### L 506.1000, L502.0250, L500.4050, L100.0100, L501.9520, L503.6550 #### [facility] [address] [place], [address] Chloride [Moles/Vol] 106 mmol/L Normal 98-107 [facility] Comment on above: Order Comment: Order Date: 10/21/24 Order Info: 785-11 - CMP Order Info: 3016-01 - TSH Order Info: 2276-02 - FLYNN Performed By: #### L 506.1000, L502.0250, L500.4050, L100.0100, L501.9520, L503.6550 #### [facility] [address] [place], [address] CO2 [Moles/Vol] 30.0 mmol/L Normal 21.0-32.0 [facility] Comment on above: Order Comment: Order Date: 10/21/24 Order Info: 0786-1 - CMP Order Info: 3 - TSH Order Info: 4 - FLYNN Performed By: #### L 506.1000, L502.0250, L500.4050, L100.0100, L501.9520, L503.6550 #### [facility] [address] [place], [address] Creatinine [Mass/Vol] 0.71 mg/dL Normal 0.55-1.02 [facility] Comment on above: Order Comment: Order Date: 10/21/24 Order Info: 0786-1 - CMP Order Info: 3016-01 Order Info: 2276-02 Result Comment: The validity of the calculated GFR GFRAA in patients over 70 years has not been determined. Clinical correlation is essential. Performed By: #### L 506.1000, L502.0250, L500.4050, L100.0100, L501.9520, L503.6550 #### [facility] [address] [place], [address] EST GFR - AA 107 mL/min Normal >60 [facility] Comment on above: Order Comment: Order Date: 10/21/24 Order Info: 785-11 - [facility] Order Info: 3016-01 Order Info: 2276-02 Result Comment: Afri can [place] GFR Calc Performed By: #### L 506.1000, L502.0250, L500.4050, L100.0100, L501.9520, L503.6550 #### [facility] [address] [place], [address] GAP 3 Low 5-15 [facility] Comment on above: Order Comment: Order Date: 10/21/24 Order Info: 785-11 - [facility] Order Info: 3016-01 Order Info: 2276-02 Performed By: #### L 506.1000, L502.0250, L500.4050, L100.0100, L501.9520, L503.6550 #### [facility] [address] [place], [place], [address] GFR/1.73 sq M.predicted among non-blacks MDRD (S/P/Bld) [Vol rate/Area] 88 mL/min/{1.73_m2} Normal >60 [facility] Comment on above: Order Comment: Order Date: 10/21/24 Order Info: 07 - CMP Order Info: 3016-01 Order Info: 2276-02 Result Comment: Non- GFR Calc Performed By: #### L 506.1000, L502.0250, L500.4050, L100.0100, L501.9520, L503.6550 #### [facility] [address] [place], [address] Globulin (S) [Mass/Vol] 4.0 g/dL Normal 2.2-4.2 [facility] Comment on above: Order Comment: Order Date: 10/21/24 Order Info: 0786-1 - CMP Order Info: 3016-01 - TSH Order Info: 2276-02 - FLYNN Performed By: #### L 506.1000, L502.0250, L500.4050, L100.0100, L501.9520, L503.6550 #### [facility] [address] [place], [address] Glucose [Mass/Vol] 85 mg/dL Normal 74-106 [facility] Comment on above: Order Comment: Order Date: 10/21/24 Order Info: 0786- - CMP Order Info: 3016-01 - TSH Order Info: 2276-02 - FLYNN Performed By: #### L 506.1000, L502.0250, L500.4050, L100.0100, L501.9520, L503.6550 #### [facility] [address] [place], [address] Potassium [Moles/Vol] 3.8 mmol/L Normal 3.5-5.1 [facility] Comment on above: Order Comment: Order Date: 10/21/24 Order Info: 0786-1 - CMP Order Info: 30104-05 - TSH Order Info: 2276-02 - FLYNN Performed By: #### L 506.1000, L502.0250, L500.4050, L100.0100, L501.9520, L503.6550 #### [facility] [address] [place], [address] Sodium [Moles/Vol] 139 mmol/L Normal 136-145 [facility] Comment on above: Order Comment: Order Date: 10/21/24 Order Info: 07 - CMP Order Info: 3016-01 - TSH Order Info: 2276-02 - FLYNN Performed By: #### L 506.1000, L502.0250, L500.4050, L100.0100, L501.9520, L503.6550 #### [facility] [address] [place], [address] T PROT 7.6 g/dL Normal 6.4-8.2 [facility] Comment on above: Order Comment: Order Date: 10/21/24 Order Info: 785-11 - CMP Order Info: 3016-01 - TSH Order Info: 2276-02 - FLYNN Performed By: #### L 506.1000, L502.0250, L500.4050, L100.0100, L501.9520, L503.6550 #### [facility] [address] [place], [address] Urea nitrogen [Mass/Vol] 8 mg/dL Normal 7-18 [facility] Comment on above: Order Comment: Order Date: 10/21/24 Order Info: 785-11 - CMP Order Info: 3016-01 - TSH Order Info: 2276-02 - FLYNN Performed By: #### L 506.1000, L502.0250, L500.4050, L100.0100, L501.9520, L503.6550 #### [facility] [address] [place], [address] Ferritinon 10-25-2024 Ferritin [Mass/Vol] 54 ng/mL Normal 8-252 [facility] Comment on above: Order Comment: Order Date: 10/21/24 Order Info: 785-11 - CMP Order Info: 3016-01 - TSH Order Info: 2276-02 - FLYNN Performed By: #### L 506.1000, L502.0250, L500.4050, L100.0100, L501.9520, L503.6550 #### [facility] [address] [place], [place], [address] Microalb:Creat Ratio,Random URon 10-25-2024 Creatinine [Mass/Vol] 90.80 mg/dL Normal NO RANGE EST. [facility] Comment on above: Order Comment: Order Date: 10/21/24 Order Info: 0779-1 - MIACRE Performed By: #### L 506.1000, L502.0250, L500.4050, L100.0100, L501.9520, L503.6550 #### [facility] [address] [place], [place], [address] MALB:CRE 8.1 mg/g CRE Normal <30 mg/g CRE [facility] Comment on above: Order Comment: Order Date: 10/21/24 Order Info: 0779-1 - MIACRE Performed By: #### L 506.1000, L502.0250, L500.4050, L100.0100, L501.9520, L503.6550 #### [facility] [address] [place], [place], [id number] MICROALBUMIN,UR 7.4 mg/L Normal NO RANGE EST. [facility] Comment on above: Order Comment: Order Date: 10/21/24 Order Info: 0779-1 - MIACRE Performed By: #### L 506.1000, L502.0250, L500.4050, L100.0100, L501.9520, L503.6550 #### [facility] [address] [place], [place], [address] Thyroid Stim Hormone (TSH)on 10-25-2024 TSH 2.130 uIU/mL Normal 0.358-3.740 [facility] Comment on above: Order Comment: Order Date: 10/21/24 Order Info: 0786-1 - CMP Order Info: 3016-3 - TSH Order Info: 2276-4 - FLYNN Performed By: #### L 506.1000, L502.0250, L500.4050, L100.0100, L501.9520, L503.6550 #### [facility] [address] [place], [address] Vitamin D,25 Hydroxyon 10-25 Vitamin D 25-OH 40.1 ng/mL Normal [facility] Comment on above: Order Comment: Order Date: 10/21/24 Order Info: [id number] - VITD25 Result Comment: Vaishali min D 25(OH) Status Range Deficiency <20 ng/mL (50nmol/L) Insufficiency 20 - 30 ng/mL (50 - 75 nmol/L) Sufficiency 30 - 100 ng/mL (75 - 250 nmol/L) Toxicity >100 ng/mL (>250 nmol/L) Performed By: #### L 506.1000, L502.0250, L500.4050, L100.0100, L501.9520, L503.6550 #### [facility] [address] [place], [address] Basophil percentageOrdered B y: Paolo Aquino on 10-20-2023 Chloride [Moles/Vol] 107 mmol/L 98-107 [facility] Glucose [Mass/Vol] 98 mg/dL 74-106 [facility] Potassium [Moles/Vol] 4.0 mmol/L 3.5-5.1 [facility] Sodium [Moles/Vol] 140 mmol/L 136-145 [facility] Blood hemoglobin measurement (mass/volume)Ordered By: Paolo Aquino on 10-20-2023 Hemoglobin (Bld) [Mass/Vol] 14.7 g/dL 12.0-15.0 [facility] Hematocrit Auto (Bld) [Volum e fraction]Ordered By: Paolo Aquino on 10-20-2023 Hematocrit (Bld) [Volume fraction] 45.2 % 37-47 [facility] - Chemistry and C hemistry - challengeOrdered By: Paolo Aquino on 10-20-2023 CO2 [Moles/Vol] 28.0 mmol/L 21.0-32.0 [facility] Urea nitrogen/Creatinine [Mass ratio] 11.4 mg/mg 10-20 [facility] No Panel InformationOrdered By: Paolo Aquino on 10-20-2023 Estimated GFR (MDRD) Amer 108 mL/min >60 [facility] Comment on above: GFR Calc Estimated GFR (MDRD) Non-Af Amer 90 mL/min >60 [facility] Comment on above: Non- GFR Calc Urine Microalbumin/Creatinine Ratio TNP [facility] Comment on above: Test not performed Serum or plasma calcium jarek urement (mass/volume)Ordered By: Paolo Aquino on 10-20-2023 Calcium [Mass/Vol] 9.1 mg/dL 8.5-10.1 [facility] Serum or plasma creatinine m easurement (mass/volume)Ordered By: Paolo Aquino on 10-20-2023 Creatinine [Mass/Vol] 0.70 mg/dL 0.55-1.02 [facility] Comment on above: The validity of the calculated GFR & GFRAA in patients over 70 years has not been determined. Clinical correlation is essential. Serum or plasma ferritin alicia surement (mass/volume)Ordered By: Paolo Aquino on 10-20-2023 Ferritin [Mass/Vol] 37 ng/mL 8-252 [facility] Serum or plasma urea nitroge n measurement (mass/volume)Ordered By: Paolo Aquino on 10-20-2023 Urea nitrogen [Mass/Vol] 8 mg/dL 7-18 [facility] Thin prep Papanicolaou smear with manual screeningOrdered By: Paolo Aquino on 10-20-2023 Thin prep Papanicolaou smear with manual screening 5 5-15 [facility] Thin prep Papanicolaou smear with manual screening < 5.0 mg/L NO RANGE EST. [facility] Urine creatinine measurement (mass/volume)Ordered By: Paolo Aquino on 10-20-2023 Creatinine (U) [Mass/Vol] 46.10 mg/dL NO RANGE EST. [facility] Basophil percentageOrdered B y: Dr. Aquino on 04-14-2023 Chloride [Moles/Vol] 107 mmol/L 98-107 [facility] Glucose [Mass/Vol] 94 mg/dL 74-106 [facility] Potassium [Moles/Vol] 4.1 mmol/L 3.5-5.1 [facility] Sodium [Moles/Vol] 139 mmol/L 136-145 [facility] Laboratory - Chemistry and C hemistry - challengeOrdered By: Dr. qAuino on 04-14-2023 CO2 [Moles/Vol] 27.0 mmol/L 21.0-32.0 [facility] Urea nitrogen/Creatinine [Mass ratio] 9.9 mg/mg 10-20 [facility] No Panel InformationOrdered By: Dr. Aquino on 04-14-2023 Estimated GFR (MDRD) Amer 107 mL/min >60 [facility] Comment on above: GFR Calc Estimated GFR (MDRD) Non-Af Amer 89 mL/min >60 [facility] Comment on above: Non- GFR Calc Serum or plasma calcium jarek urement (mass/volume)Ordered By: Dr. Aquino on 04-14-2023 Calcium [Mass/Vol] 9.5 mg/dL 8.5-10.1 [facility] Serum or plasma creatinine m easurement (mass/volume)Ordered By: Dr. Aquino on 04-14-2023 Creatinine [Mass/Vol] 0.71 mg/dL 0.55-1.02 [facility] Comment on above: The validity of the calculated GFR & GFRAA in patients over 70 years has not been determined. Clinical correlation is essential. Serum or plasma urea nitroge n measurement (mass/volume)Ordered By: Dr. Aquino on 04-14-2023 Urea nitrogen [Mass/Vol] 7 mg/dL 7-18 [facility] Thin prep Papanicolaou smear with manual screeningOrdered By: Dr. Aquino on 04-14-2023 Thin prep Papanicolaou smear with manual screening 5 5-15 [facility] No Panel Informationon 10-30 Urine Microalbumin/Creatinine Ratio TNP [facility] Work Phone: Comment on above: Test not performed Thin prep Papanicolaou smear with manual screeningon 10-30-2022 Thin prep Papanicolaou smear with manual screening < 5.0 mg/L NO RANGE EST. [facility] Work Phone: Urine creatinine measurement (mass/volume)on 10-30-2022 Creatinine (U) [Mass/Vol] 71.80 mg/dL NO RANGE EST. [facility] Work Phone: Absolute lymphocyte counton 10-23-2022 Lymphocytes Auto (Unsp spec) [#/Vol] 1.48 10*3/uL 0.83-4.51 [facility] Work Phone: Basophil percentageon 2021 Basophils/100 WBC (Bld) 0.3 % 0-1 [facility] Work Phone: [phone] Bilirubin [Mass/Vol] 0.90 mg/dL 0.20-1.00 [facility] Work Phone: Comment on above: For patients on eltr ombopag therapy, use of Dimension [place] TBIL is not recommended. Chloride [Moles/Vol] 104 mmol/L 98-107 [facility] Work Phone: [phone] Cholesterol [Mass/Vol] 211 mg/dL <200 [facility] Work Phone: [phone] Comment on above: <200 mg/dL Desirable 200-240 mg/dL Borderline >240 mg/dL High Risk Eosinophils/100 WBC (Bld) 1.1 % 0-5 [facility] Work Phone: [phone] Glucose [Mass/Vol] 79 mg/dL 74-106 [facility] Work Phone: Neutrophils (Bld) [#/Vol] 5.1 10*3/uL 2.0-7.7 [facility] Work Phone: Neutrophils/100 WBC (Bld) 68.1 % 47-70 [facility] Work Phone: [phone] Potassium [Moles/Vol] 4.2 mmol/L 3.5-5.1 [facility] Work Phone: [phone] Protein [Mass/Vol] 7.4 g/dL 6.4-8.2 [facility] Work Phone: [phone] Sodium [Moles/Vol] 139 mmol/L 136-145 [facility] Work Phone: Triglyceride [Mass/Vol] 76 mg/dL <199 [facility] Work Phone: Comment on above: The drugs N-Acetylcy steine and Metamizole may falsely depress this assay.Serum Triglycerides Reference Interval Normal <150 mg/dL Borderline high 150 - 199 mg/dL High 200 - 499 mg/dL Very High > or = 500 mg/dL WBC (Bld) [#/Vol] 7.5 10*3/uL 4.4-11.0 [facility] Work Phone: Blood erythrocytes count (nu mber/volume)on 10-23-2022 RBC (Bld) [#/Vol] 4.97 10*6/uL 4.2-5.4 [facility] Work Phone: Blood hemoglobin measurement (mass/volume)on 10-23-2022 Hemoglobin (Bld) [Mass/Vol] 15.6 g/dL 12.0-15.0 [facility] Work Phone: Blood lymphocytes/100 leukoc yteson 10-23-2022 Lymphocytes/100 WBC (Bld) 19.7 % 19-41 [facility] Work Phone: Blood monocytes/100 leukocyt eson 10-23-2022 Monocytes/100 WBC (Bld) 10.7 % 0-10 [facility] Work Phone: Blood platelet mean volumeon 10-23-2022 Platelet mean volume (Bld) [Entitic vol] 10.2 fL 6.2-12.0 [facility] Work Phone: Determination of erythrocyte mean corpuscular volume (MCV)on 10-23-2022 MCV (RBC) [Entitic vol] 94.0 fL 81-99 [facility] Work Phone: Hematocrit Auto (Bld) [Volum e fraction]on 10-23-2022 Hematocrit (Bld) [Volume fraction] 46.7 % 37-47 [facility] Work Phone: Laboratory - Chemistry and C hemistry - challengeon 10-23-2022 ALP [Catalytic activity/Vol] 81 U/L 45-117 [facility] Work Phone: ALT [Catalytic activity/Vol] 22 U/L 13-56 [facility] Work Phone: CO2 [Moles/Vol] 31.0 mmol/L 21.0-32.0 [facility] Work Phone: Globulin (S) [Mass/Vol] 3.8 g/dL 2.2-4.2 [facility] Work Phone: Urea nitrogen/Creatinine [Mass ratio] 11.9 mg/mg 10-20 [facility] Work Phone: Laboratory - Hematology and Cell countson 10-23-2022 Erythrocyte distribution width (RBC) [Entitic vol] 42.3 fL 35.1-43.9 [facility] Work Phone: Erythrocyte distribution width (RBC) [Ratio] 12.2 % 11.6-14.6 [facility] Work Phone: Immature granulocytes/100 WBC (Bld) 0.100 % 0.0-0.9 [facility] Work Phone: Comment on above: IG% - Immature Granu locytes (promyelocytes, myelocytes and metamyelocytes) > 1% indicates that a LEFT SHIFT is Present. MCH (RBC) [Entitic mass] 31.4 pg 27.0-32.0 [facility] Work Phone: Nucleated RBC/100 WBC (Bld) [Ratio] 0 % 0-5 [facility] Work Phone: MCHC Auto (RBC) [Mass/Vol]on 10-23-2022 MCHC (RBC) [Mass/Vol] 33.4 g/dL 32-36 [facility] Work Phone: No Panel Informationon 10-23 Estimated GFR (MDRD) Amer 114 mL/min >60 [facility] Work Phone: Comment on above: GFR Calc Estimated GFR (MDRD) Non-Af Amer 94 mL/min >60 [facility] Work Phone: Comment on above: Non- GFR Calc Thyroid Stimulating Hormone (TSH) 1.67 uIU/mL 0.358-3.74 [facility] Work Phone: Platelets bldon 10-23-2022 Platelets (Bld) [#/Vol] 312 10*3/uL 150-450 [facility] Work Phone: Serum or plasma albumin jarek urement (mass/volume)on 10-23-2022 Albumin [Mass/Vol] 3.6 g/dL 3.2-5.0 [facility] Work Phone: Serum or plasma albumin/glob ulin mass ratioon 10-23-2022 Albumin/Globulin [Mass ratio] 0.9 {ratio} 0.9-2.4 [facility] Work Phone: Serum or plasma calcium jarek urement (mass/volume)on 10-23-2022 Calcium [Mass/Vol] 9.1 mg/dL 8.5-10.1 [facility] Work Phone: Serum or plasma cholesterol in HDL measurement (mass/volume)on 10-23-2022 Cholesterol in HDL [Mass/Vol] 72 mg/dL >40 [facility] Work Phone: Comment on above: The drugs N-Acetylcy steine and Metamizole may falsely depress this assay. Reference Range HDL <40 mg/dL Low HDL Cholesterol HDL >or= 60 mg/dL High HDL Cholesterol Serum or plasma cholesterol in VLDL measurement (mass/volume)on 10-23-2022 Cholesterol in VLDL [Mass/Vol] 15 mg/dL 5-40 [facility] Work Phone: Serum or plasma creatinine m easurement (mass/volume)on 10-23-2022 Creatinine [Mass/Vol] 0.68 mg/dL 0.55-1.02 [facility] Work Phone: Comment on above: The validity of the calculated GFR & GFRAA in patients over 70 years has not been determined. Clinical correlation is essential. Serum or plasma low density lipoprotein (LDL) cholesterol measurement (mass/volume)on 10-23-2022 Cholesterol in LDL [Mass/Vol] 124 mg/dL 0-130 [facility] Work Phone: Serum or plasma urea nitroge n measurement (mass/volume)on 10-23-2022 Urea nitrogen [Mass/Vol] 8 mg/dL 7-18 [facility] Work Phone: Thin prep Papanicolaou smear with manual screeningon 10-23-2022 Thin prep Papanicolaou smear with manual screening 17 U/L 15-37 [facility] Work Phone: Thin prep Papanicolaou smear with manual screening 4 5-15 [facility] Work Phone: No Panel Informationon 05-20 Vitamin D 25-Hydroxy 35.2 ng/mL [facility] Work Phone: Comment on above: Vitamin D 25(OH) Sta tus Range Deficiency <20 ng/mL (50nmol/L) Insufficiency 20 - 30 ng/mL (50 - 75 nmol/L) Sufficiency 30 - 100 ng/mL (75 - 250 nmol/L) Toxicity >100 ng/mL (>250 nmol/L) Serum or plasma ferritin alicia surement (mass/volume)on 05-20-2022 Ferritin [Mass/Vol] 38 ng/mL 8-252 [facility] Work Phone: Serum or plasma zinc measure ment (mass/volume)on 05-20-2022 Zinc [Mass/Vol] 63 ug/dL 44-115 [facility] Work Phone: Comment on above: Detection Limit = 5P erformed at: [facility] [address] [id number] Director: Sarah Mendez MD, Phone: [phone] Absolute lymphocyte counton 04-11-2022 Lymphocytes Auto (Unsp spec) [#/Vol] 1.22 10*3/uL 0.83-4.51 [facility] Work Phone: Basophil percentageon 2021 Basophils/100 WBC (Bld) 0.5 % 0-1 [facility] Work Phone: [phone] Bilirubin [Mass/Vol] 1.10 mg/dL 0.20-1.00 [facility] Work Phone: [phone] Comment on above: For patients on eltr ombopag therapy, use of Dimension [place] TBIL is not recommended. Chloride [Moles/Vol] 106 mmol/L 98-107 [facility] Work Phone: [phone] Eosinophils/100 WBC (Bld) 1.1 % 0-5 [facility] Work Phone: Glucose [Mass/Vol] 97 mg/dL 74-106 [facility] Work Phone: [phone] Neutrophils (Bld) [#/Vol] 5.8 10*3/uL 2.0-7.7 [facility] Work Phone: [phone] Neutrophils/100 WBC (Bld) 73.1 % 47-70 [facility] Work Phone: [phone] Potassium [Moles/Vol] 4.0 mmol/L 3.5-5.1 [facility] Work Phone: [phone] Protein [Mass/Vol] 7.6 g/dL 6.4-8.2 [facility] Work Phone: [phone] Sodium [Moles/Vol] 138 mmol/L 136-145 [facility] Work Phone: [phone] WBC (Bld) [#/Vol] 8.0 10*3/uL 4.4-11.0 [facility] Work Phone: [phone] Blood erythrocytes count (nu mber/volume)on 04-11-2022 RBC (Bld) [#/Vol] 4.62 10*6/uL 4.2-5.4 [facility] Work Phone: [phone] Blood hemoglobin measurement (mass/volume)on 04-11-2022 Hemoglobin (Bld) [Mass/Vol] 14.2 g/dL 12.0-15.0 [facility] Work Phone: Blood lymphocytes/100 leukoc yteson 04-11-2022 Lymphocytes/100 WBC (Bld) 15.3 % 19-41 [facility] Work Phone: Blood monocytes/100 leukocyt eson 04-11-2022 Monocytes/100 WBC (Bld) 9.7 % 0-10 [facility] Work Phone: Blood platelet mean volumeon 04-11-2022 Platelet mean volume (Bld) [Entitic vol] 10.3 fL 6.2-12.0 [facility] Work Phone: Determination of erythrocyte mean corpuscular volume (MCV)on 04-11-2022 MCV (RBC) [Entitic vol] 95.0 fL 81-99 [facility] Work Phone: Hematocrit Auto (Bld) [Volum e fraction]on 04-11-2022 Hematocrit (Bld) [Volume fraction] 43.9 % 37-47 [facility] Work Phone: Interpretation of Borrelia b urgdorferi antibody assayon 04-11-2022 B. burgdorferi Ab (S) [Interp] REF LAB [facility] Work Phone: Laboratory - Chemistry and C hemistry - challengeon 04-11-2022 ALP [Catalytic activity/Vol] 74 U/L 45-117 [facility] Work Phone: ALT [Catalytic activity/Vol] 22 U/L 13-56 [facility] Work Phone: CO2 [Moles/Vol] 27.0 mmol/L 21.0-32.0 [facility] Work Phone: Globulin (S) [Mass/Vol] 3.8 g/dL 2.2-4.2 [facility] Work Phone: Urea nitrogen/Creatinine [Mass ratio] 12.8 mg/mg 10-20 [facility] Work Phone: Laboratory - Hematology and Cell countson 04-11-2022 Erythrocyte distribution width (RBC) [Entitic vol] 44.2 fL 35.1-43.9 [facility] Work Phone: Erythrocyte distribution width (RBC) [Ratio] 12.8 % 11.6-14.6 [facility] Work Phone: Immature granulocytes/100 WBC (Bld) 0.300 % 0.0-0.9 [facility] Work Phone: Comment on above: IG% - Immature Granu locytes (promyelocytes, myelocytes and metamyelocytes) > 1% indicates that a LEFT SHIFT is Present. MCH (RBC) [Entitic mass] 30.7 pg 27.0-32.0 [facility] Work Phone: Nucleated RBC/100 WBC (Bld) [Ratio] 0 % 0-5 [facility] Work Phone: MCHC Auto (RBC) [Mass/Vol]on 04-11-2022 MCHC (RBC) [Mass/Vol] 32.3 g/dL 32-36 [facility] Work Phone: No Panel Informationon 04-11 Estimated GFR (MDRD) Amer 109 mL/min >60 [facility] Work Phone: Comment on above: GFR Calc Estimated GFR (MDRD) Non-Af Amer 90 mL/min >60 [facility] Work Phone: Comment on above: Non- GFR Calc Thyroid Stimulating Hormone (TSH) 1.62 uIU/mL 0.358-3.74 [facility] Work Phone: Urine Microalbumin/Creatinine Ratio 17.0 mg/g CRE <30 [facility] Work Phone: Platelets bldon 04-11-2022 Platelets (Bld) [#/Vol] 329 10*3/uL 150-450 [facility] Work Phone: Serum or plasma albumin jarek urement (mass/volume)on 04-11-2022 Albumin [Mass/Vol] 3.8 g/dL 3.2-5.0 [facility] Work Phone: Serum or plasma albumin/glob ulin mass ratioon 04-11-2022 Albumin/Globulin [Mass ratio] 1.0 {ratio} 0.9-2.4 [facility] Work Phone: Serum or plasma calcium jarek urement (mass/volume)on 04-11-2022 Calcium [Mass/Vol] 9.3 mg/dL 8.5-10.1 [facility] Work Phone: Serum or plasma creatinine m easurement (mass/volume)on 04-11-2022 Creatinine [Mass/Vol] 0.70 mg/dL 0.55-1.02 [facility] Work Phone: Comment on above: The validity of the calculated GFR & GFRAA in patients over 70 years has not been determined. Clinical correlation is essential. Serum or plasma urea nitroge n measurement (mass/volume)on 04-11-2022 Urea nitrogen [Mass/Vol] 9 mg/dL 7-18 [facility] Work Phone: Thin prep Papanicolaou smear with manual screeningon 04-11-2022 Thin prep Papanicolaou smear with manual screening 15 U/L 15-37 [facility] Work Phone: Thin prep Papanicolaou smear with manual screening 5 5-15 [facility] Work Phone: Thin prep Papanicolaou smear with manual screening 5.1 mg/L NO RANGE EST. [facility] Work Phone: Thin prep Papanicolaou smear with manual screening Negative Negative [facility] Work Phone: Comment on above: Lyme Antibody Negati veNo laboratory evidence of infection with B. burgdorferi(Lyme disease). Negative results may occur in patientsrecently infected (greater than or equal to 14 days) withB. burgdorferi. If recent infection is suspected, repeattesting on a new sample collected in 7 to 14 days isrecommended.Performed at: [address] [id number] Director: Mustapha Davis PhD, Phone: [phone] Urine creatinine measurement (mass/volume)on 04-11-2022 Creatinine (U) [Mass/Vol] 29.80 mg/dL NO RANGE EST. [facility] Work Phone: Vital Signs Date Time Vital Sign Value Performing Clinician Marcel yost 03-20-2023 09:40-0400 Body temperature 98.1 [degF] Dr. Paolo Aquino Work Phone: [facility] 03-20-2023 09:40-0400 Diastolic blood pressure 56 mm[Hg] Dr. Paolo Aquino Work Phone: [facility] 03-20-2023 09:40-0400 Heart rate 66 /min Dr. Paolo Aquino Work Phone: [facility] 03-20-2023 09:40-0400 Respiratory rate 16 /min Dr. Paolo Aquino Work Phone: [facility] 03-20-2023 09:40-0400 SaO2% (BldA) [Mass fraction] 100 % Dr. Paolo Aquino Work Phone: [facility] 03-20-2023 09:40-0400 Systolic blood pressure 108 mm[Hg] Dr. Paolo Aquino Work Phone: [facility] 03-20-2023 08:17-0400 Body height 154.[address] Paolo Aquino Work Phone: [facility] 03-20-2023 08:17-0400 Body mass index (BMI) [Ratio] 26.2 kg/m2 Dr. Paolo Aquino Work Phone: [facility] 03-20-2023 08:17-0400 Body weight [address] Paolo Aquino Work Phone: [facility] 01-07-2023 14:17-0500 Body mass index (BMI) [Ratio] 27.1 kg/m2 Dr. Paolo Aquino Work Phone: [facility] 01-07-2023 14:17-0500 Body weight 65.[address] Paolo Aquino Work Phone: [facility] Encounters Encounter Date Encounter Type Care Provider Facility Start: 11-14-2025 ambulatory Paolo Aquino Facility:[facility] Start: 10-25-2024 End: 10-25-2024 ambulatory Paolo Aquino Facility:[facility] Start: 10-20-2023 End: 10-20-2023 ambulatory [facility] Work Phone: Start: 10-20-2023 End: 10-20-2023 Patient encounter procedure [facility] Start: 04-18-2023 End: 04-18-[address] Paolo Aquino Work Phone: [facility] Work Phone: Start: 04-18-2023 End: 04-18-[address] Paolo Aquino Work Phone: [facility]Outpatient [facility] Start: 04-14-2023 End: 04-14-[address] Paolo Aquino Work Phone: [facility] Start: 03-20-2023 Non-patient / Non-visit Dr. Tod Aquino Work Phone: [facility] Start: 03-20-2023 End: 03-20-2023 Admission to same day surgery center Dr. Paolo Aquino Work Phone: [facility]Endoscopy Start: 01-07-2023 Non-patient / Non-visit Dr. Tod Aquino Work Phone: [facility] Start: 10-30-2022 End: 10-30-2022 ambulatory [facility] Work Phone: Start: 10-30-2022 End: 10-30-2022 Patient encounter procedure [facility]-Laboratory, Specimen Start: 10-23-2022 End: 10-23-2022 Patient encounter procedure [facility] Start: 05-20-2022 End: 05-20-2022 Patient encounter procedure [facility] Start: 04-11-2022 End: 04-11-2022 Patient encounter procedure [facility] Start: 01-08-2022 End: 01-08-2022 Patient encounter procedure [facility] Procedures Date Procedure Procedure Detail Performing Clinician Start: 04-18-2023 Screening mammography Roxana Aquino Work Phone: Start: 01-08-2022 Screening mammography Plan of Treatment Date Care Activity Detail Author Start: 03-20-2023 Colonoscopy flx dx w/collj spec when pfrmd DIAGNOSTIC COLONOSCOPY [facility] Start: 03-20-2023 Patient discharge [facility] Colonoscopy [facility] Patient referral [facility] Work Phone: Zinc [Mass/volume] i n Serum or Plasma [facility] Work Phone: Payers Date Payer Category Payer Self-pay [id number] 2022 Unknown [id number] Unknown [id number] Unknown [id number] Social History Date Type Detail Facility Tobacco smoking status NHIS Unknown if ever smoked [facility] Work Phone: Start: 1960 Sex Assigned At Female [facility] Start: 03-18-2023 End: 03-18-2023 Tobacco smoking status NHIS Unknown if ever smoked [facility] NEGATED: Highlighted row [facility] Goals Date Patient Goal Desired Activity /State Mental Status Date Assessment Result Facility 03-20-2023 Cognitive function Voice/Name [facility] Work Phone: Evaluation note Note Date & Type Note Facility Evaluation note No assessment information availa ble [facility] Work Phone: Evaluation note Note Date & Type Note Facility Evaluation note Diagnosis Onset Date Encounter for screening for malignant neoplasm of colon acute [facility] Work Phone: Chief Complaint and Reason for Visit Chief Complaint SCREENING Chief Complaint URINE DROP OFF Chief Complaint Amb Documentation SCREENING Reason for Visit Encounter for screen ing for malignant neoplasm of colon Advance Directives No Advanced Directives Records Found Advance Directive Response Recorded Date/ Time Name of Medical Power of Shopper March 18, 2023 12:01pm Living Will Yes March 18, 2023 1 2:01pm Power of Shopper Yes March 18, 2023 12:01pm Advance Directive Response Recorded Date/ Time Living Will Yes March 18, 2023 1 1:01am Power of Shopper Yes March 18, 2023 11:01am Summary Purpose Family History No Family History Records Found Additional Source Comments Goals (unrecognized section and content) Goals may be documented in a n alternate sectionGoals may be documented in an alternate sectionGoals may be documented in an alternate sectionGoals may be documented in an alternate sectionGoals may be documented in an alternate section Care Teams (unrecognized sec tion and content) Team Status: Active Member Role Status Dates Dr. Paolo Aquino MD Family Provider Active Dr. Paolo Aquino MD Primary Care Provider Active Team Status: Active Member Role Status Dates Dr. Paolo Aquino MD [facility] Active Team Status: Active Member Role Status Dates Dr. Paolo Aquino MD Primary Care Provider, Referring P rosara Active Dr. Jasbir Otero DO Attending Provider, Other Prov ider Active Team Status: Inactive Member Role Status Dates Dr. Paolo Aquino MD Primary Care Provider, Referring P rovipolly Active Dr. Jasbir Otero DO Attending Provider Active Team Status: Inactive Member Role Status Dates Dr. Paolo Aquino MD Primary Care Provider, Attending P rosara Active Team Status: Inactive Member Role Status Dates Dr. Paolo Aquino MD Primary Care Provide r, Attending Provider, Referring Provider Active INFORMATION SOURCE (unrecogn ized section and content) DATE CREATED AUTHOR 09/07/2025 [facility] FOR RECORDS PERTAINING TO PATIENTS WHO ARE OR HAVE BEEN ENROLLED IN A CHEMICAL DEPENDENCY/SUBSTANCEABUSE PROGRAM, SOME INFORMATION MAY BE OMITTED. This clinical summary was aggregated from multiple sources. Caution should be exercised in using it in the provision of clinical care. This summary normalizes information from multiple sources, and as a consequence, information in this document may materially change the coding, format and clinical context of patient data. In addition, data may be omitted in some cases. CLINICAL DECISIONS SHOULD BE BASED ON THE PRIMARY CLINICAL RECORDS. [facility] [employer] [facility]. provides no warranty or guarantee of the accuracy or completeness of information in this document.
--- NOTE | 2025-10-20 07:55 | CT_ITS ---
PROCEDURE: EXTREMITY UPPER WITHOUT CONTRA 10/20/2025 REASON FOR EXAM: OSTEOARTHRITIS RIGHT SHOULDER TECHNIQUE: Procedure Code: [id number] Modality: CT Procedure: EXTREMITY UPPER WITHOUT CONTRA Coronal and Sagittal reconstruction series were provided. One or more dose reduction techniques were used (e.g., Automated exposure control, adjustment of the mA and/or kV according to patient size, use of iterative reconstruction technique. RADIATION DOSE SUMMARY: CTDlvol: 22.24 mGy DLP: 502.91 mGycm COMPARISON: None available for review. FINDINGS: Bones: Computed tomographic images of the right shoulder demonstrate marginal glenohumeral osteophytes with joint space narrowing as well as degenerative changes of the right acromioclavicular joint with associated subacromial and subclavicular osteophytes. Degenerative changes of the thoracic spine. No joint effusion. No axillary lymphadenopathy. Mediastinal lymph node calcifications. CT/Extremity Upper without Contra IMPRESSION: 1. Mild-moderate osteoarthritic degenerative changes of the right glenohumeral joint with subclavicular and subacromial osteophytes that could predispose the patient to impingement type symptoms in t he appropriate clinical context. 2. Mediastinal chronic granulomatous disease. Reading Location: [facility]
[2025-10-20 09:55] LABS: Creatinine, Urine (random) 30.10 mg/dL (28.00-217.00); Microalbumin,Random Urine < 12.0 mg/L (<20 mg/L)
[2025-10-20 10:12] LABS: Ferritin 75 ng/mL (22-378); Vitamin D,25 Hydroxy 33.2 ng/mL (30-100)
[2025-10-20 10:37] LABS: Cholesterol 211 mg/dL (<=200); Low Density Lipoprotein Calc. 118 mg/dL; Triglycerides 98 mg/dL; Very Low Density Lipoprotein 20 mg/dL (5-40); cholesterol:hdl ratio screen 2.79
== END | disposition home or self-care (01) ==
LOC: PSN 08:16 → CT 08:20
PROVIDERS: PCP Family Medicine; Referring Provider Student in an Organized Health Care Education/Training Program; Visit Provider Student in an Organized Health Care Education/Training Program
DX: M19.011 Primary osteoarthritis, right shoulder (principal); R01.1 Cardiac murmur, unspecified; Z13.220 Encounter for screening for lipoid disorders; I10 Essential (primary) hypertension; E55.9 Vitamin D deficiency, unspecified; K90.0 Celiac disease; E61.1 Iron deficiency; M75.121 Complete rotator cuff tear or rupture of right shoulder, not specified as traumatic; S46.111D Strain of muscle, fascia and tendon of long head of biceps, right arm, subsequent encounter
CPT/HCPCS: 73200; 80061; 82043; 82306; 82570; 82728; 84443